=== PATIENT | female | born 1965 | race American Indian/Alaskan Native ===

== ENCOUNTER 2017-08-13 13:34 | Outpatient (CLI) | payer OTHER ==
--- NOTE | 2017-08-13 16:35 | XRay Report ---
XRAY BILATERAL KNEE THREE VIEWS EACH: 08/13/17 13:34:00 CLINICAL: Bilateral knee pain. FINDINGS: Right: Medial joint space narrowing with moderate size osteophytes. Slight widening of the lateral joint space. Small patellofemoral osteophytes. No fracture or dislocation. No joint effusion. Normal soft tissues. Left: Mild medial joint space narrowing with small osteophytes. The lateral joint space is normal. Small patellofemoral osteophytes. No fracture or dislocation. No joint effusion.Normal soft tissues. IMPRESSION: Bilateral medial and patellofemoral joint osteoarthritis, worse on the right than the left.
== END 2017-08-13 13:35 | disposition home or self-care (01) ==
LOC: SPVIMAG 13:34
PROVIDERS: ATTEND Orthopaedic Surgery
DX: M17.0 Bilateral primary osteoarthritis of knee (principal)